=== PATIENT | male | born 1975 | race Hispanic/Latino ===

== ENCOUNTER 2018-01-19 00:33 | Emergency (ER) | payer BC ==
[2018-01-19] MEDS ORDERED: ONDANSETRON 4 MG (ODT) TAB ONE (01:30)
--- NOTE | 2018-01-19 01:54 | ER ---
Nurse's Notes [facility] Name: Jason Lynn Age: 42 yrs Sex: Male : 1975 Arrival Date: 01/19/2018 Time: 00:39 Bed 8 Private MD: Diagnosis: Nondisplaced fracture of distal phalanx of left great toe Presentation: 01/19 00:54 Presenting complaint: Patient states: he was in the garage a couple of days ago and bb some iron bed railing fell on his left big toe which is now painful and swollen. Transition of care: patient was not received from another setting of care. Onset of symptoms was January 19, 2018. Risk Assessment: Do you want to hurt yourself or someone else? Patient reports no desire to harm self or others. Initial Sepsis Screen: Does the patient meet any 2 criteria? No. Patient's initial sepsis screen is negative. Does the patient have a suspected source of infection? No. Patient's initial sepsis screen is negative. Care prior to arrival: None. 00:54 Method Of Arrival: Ambulatory bb 00:54 Acuity: AMY 3 bb Historical: - Allergies: 00:55 No Known Allergies; bb - Home Meds: 00:55 None [Active]; bb - PMHx: 00:55 None; bb - PSHx: 00:55 back injections; bb - Immunization history:: Adult Immunizations up to date. - Social history:: Smoking status: Patient uses tobacco products, smokes one-half pack cigarettes per day, Patient uses alcohol, occasionally. Patient/guardian denies using street drugs. - Ebola Screening: : No symptoms or risks identified at this time. Screenin:56 Abuse screen: Denies threats or abuse. Denies injuries from another. Nutritional bp screening: No deficits noted. Tuberculosis screening: No symptoms or risk factors identified. Fall Risk None identified. Assessment: 00:54 General: Appears in no apparent distress. uncomfortable, slender, Behavior is calm, bp cooperative, appropriate for age. Pain: Complains of pain in left first toe and Left first toenail. Neuro: Level of Consciousness is awake, alert, obeys commands, Oriented to person, place, time, situation, Appropriate for age. Cardiovascular: No deficits noted. Respiratory: Airway is patent Respiratory effort is even, unlabored, Respiratory pattern is regular, symmetrical. GI: No signs and/or symptoms were reported involving the gastrointestinal system. : No signs and/or symptoms were reported regarding the genitourinary system. EENT: No deficits noted. Derm: No deficits noted. Musculoskeletal: Circulation, motion, and sensation intact. Range of motion: intact in all extremities, Bony deformity noted of left first toe and Left first toenail. Injury Description: Deformity sustained to left first toe and Left first toenail. 01:43 Reassessment: Patient appears in no apparent distress at this time. Patient and/or tl2 family updated on plan of care and expected duration. Pain level reassessed. Patient is alert, oriented x 3, equal unlabored respirations, skin warm/dry/pink. 02:05 Reassessment: PT D/C HOME AMBULATORY, DX WITH NONDISPLACED FX OF LEFT GREAT TOE. bp Vital Signs: 00:55 BP 150 / 89; Pulse 99; Resp 18 S; Temp 98.3(O); Pulse Ox 98% on R/A; Weight 83.91 kg bb (R); Height 6 ft. 1 in. (185.42 cm) (R); Pain 2/10; 01:43 BP 158 / 90; Pulse 79; Resp 18; Pulse Ox 99% on R/A; tl2 00:55 Body Mass Index 24.41 (83.91 kg, 185.42 cm) bb ED Course: 00:39 Patient arrived in ED. do 00:43 Uche Thomas PA is PHCP. jr8 00:43 William Skelton MD is Attending Physician. jr8 00:45 Larry Davenport, WINNIE is Primary Nurse. bp 00:55 Triage completed. bb 00:55 Arm band placed on Patient placed in an exam room, on a stretcher, on pulse oximetry. bb 00:56 Patient has correct armband on for positive identification. Bed in low position. Call bp light in reach. Side rails up X2. 01:31 X-ray completed. Portable x-ray completed in exam room. Patient tolerated procedure kw well. 01:32 XRAY Foot LEFT 3 View In Process Unspecified. EDMS 01:52 Abraham Alvarado MD is Referral Physician. jr8 01:53 Maurilio Nettles DPM is Referral Physician. jr8 01:53 Referral Physician role handed off by Abraham Alvarado MD jr8 02:05 No provider procedures requiring assistance completed. Patient did not have IV access bp during this emergency room visit. Administered Medications: 01:27 Drug: Zofran 4 mg Route: PO; bp Outcome: 01:53 Discharge ordered by jr8 02:05 Discharged to home ambulatory, with family. bp 02:05 Condition: stable 02:05 Discharge instructions given to patient, Instructed on discharge instructions, follow up and referral plans. medication usage, wound care, Demonstrated understanding of instructions, follow-up care, medications, wound care, Prescriptions given X 2. 02:06 Patient left the ED. bp Signatures: Dispatcher [employer] EDMS Denisha Thompson RN RN bb Jennifer Marin Josh, PA PA jr8 Eva Bland Taylor, RN RN tl2 Larry Davenport RN RN bp
--- NOTE | 2018-01-19 01:54 | EDPHYS ---
Physician Documentation [facility] Name: Jason Lynn Age: 42 yrs Sex: Male : 1975 Arrival Date: 01/19/2018 Time: 00:39 Bed 8 Private MD: ED Physician William Skelton HPI: 01/19 01:18 This 42 yrs old Male presents to ER via Ambulatory with complaints of Foot jr8 Injury. 01:18 The patient presents with decreased range of motion, pain, swelling, tenderness. The jr8 complaints affect the left first toe. Onset: The symptoms/episode began/occurred acutely. Modifying factors: The symptoms are alleviated by nothing. the symptoms are aggravated by movement, weight bearing. Associated signs and symptoms: The patient has no apparent associated signs or symptoms. Severity of symptoms: At their worst the symptoms were moderate, in the emergency department the symptoms are unchanged. The patient has not experienced similar symptoms in the past. The patient has not recently seen a physician. Stated that large metal bed railing landed on left first toe. Pain since incident that is not getting any better . Historical: - Allergies: 00:55 No Known Allergies; bb - Home Meds: 00:55 None [Active]; bb - PMHx: 00:55 None; bb - PSHx: 00:55 back injections; bb - Immunization history:: Adult Immunizations up to date. - Social history:: Smoking status: Patient uses tobacco products, smokes one-half pack cigarettes per day, Patient uses alcohol, occasionally. Patient/guardian denies using street drugs. - Ebola Screening: : No symptoms or risks identified at this time. ROS: 01:18 Eyes: Negative for injury, pain, redness, and discharge, ENT: Negative for injury, jr8 pain, and discharge, Neck: Negative for injury, pain, and swelling, Cardiovascular: Negative for chest pain, palpitations, and edema, Respiratory: Negative for shortness of breath, cough, wheezing, and pleuritic chest pain, Abdomen/GI: Negative for abdominal pain, nausea, vomiting, diarrhea, and constipation, Back: Negative for injury and pain, Skin: Negative for injury, rash, and discoloration, Neuro: Negative for headache, weakness, numbness, tingling, and seizure. 01:18 MS/extremity: Positive for decreased range of motion, ecchymosis, pain, swelling, tenderness, of the left first toe. Exam: 01:18 Constitutional: This is a well developed, well nourished patient who is awake, alert, jr8 and in no acute distress. Cardiovascular: Regular rate and rhythm with a normal S1 and S2. No gallops, murmurs, or rubs. Normal PMI, no JVD. No pulse deficits. Respiratory: Lungs have equal breath sounds bilaterally, clear to auscultation and percussion. No rales, rhonchi or wheezes noted. No increased work of breathing, no retractions or nasal flaring. Skin: Warm, dry with normal turgor. Normal color with no rashes, no lesions, and no evidence of cellulitis. Neuro: Awake and alert, GCS 15, oriented to person, place, time, and situation. Cranial nerves II-XII grossly intact. Motor strength 5/5 in all extremities. Sensory grossly intact. Cerebellar exam normal. Normal gait. 01:18 Musculoskeletal/extremity: ROM: intact in all extremities, Circulation is intact in all extremities. Sensation intact. Patient has ecchymotic swollen first toe from tip of toe down through toe nail. Nail still intact. Mild subungual hematoma noted . Vital Signs: 00:55 BP 150 / 89; Pulse 99; Resp 18 S; Temp 98.3(O); Pulse Ox 98% on R/A; Weight 83.91 kg bb (R); Height 6 ft. 1 in. (185.42 cm) (R); Pain 2/10; 01:43 BP 158 / 90; Pulse 79; Resp 18; Pulse Ox 99% on R/A; tl2 00:55 Body Mass Index 24.41 (83.91 kg, 185.42 cm) bb MDM: 00:43 Patient medically screened. jr8 01:52 Data reviewed: vital signs, nurses notes, radiologic studies, plain films, and as a jr8 result, I will discharge patient. Data interpreted: Pulse oximetry: on room air is 99 %. Interpretation: normal. Counseling: I had a detailed discussion with the patient and/or guardian regarding: the historical points, exam findings, and any diagnostic results supporting the discharge/admit diagnosis, radiology results, the need for outpatient follow up, a orthopedic surgeon, to return to the emergency department if symptoms worsen or persist or if there are any questions or concerns that arise at home. 01/19 00:51 Order name: XRAY Foot LEFT 3 View bp Administered Medications: 01:27 Drug: Zofran 4 mg Route: PO; bp Disposition: 20:33 Co-signature as Attending Physician, William Skelton MD I agree with the assessment and wa plan of care. Disposition: 01/19/18 01:53 Discharged to Home. Impression: Nondisplaced fracture of distal phalanx of left great toe. - Condition is Stable. - Discharge Instructions: Toe Fracture. - Prescriptions for Ibuprofen 800 mg Oral Tablet - take 1 tablet by ORAL route every 12 hours As needed take with food; 20 tablet. Bactrim DS 800- 160 mg Oral Tablet - take 1 tablet by ORAL route every 12 hours for 10 days; 20 tablet. - Medication Reconciliation Form, Thank You Letter, Antibiotic Education, Prescription Opioid Use form. - Follow up: Abraham Alvarado MD; When: 1 week; Reason: Recheck today's complaints, Continuance of care, Re-evaluation by your physician. Follow up: Maurilio Nettles DPM; When: 1 week; Reason: Recheck today's complaints, Continuance of care, Re-evaluation by your physician. - Problem is new. - Symptoms have improved. Signatures: Dispatcher [employer] EDMS Denisha Thompson RN RN Uche Pollard PA PA jr8 William Skelton MD MD wa Peltier, Brian, RN RN bp Corrections: (The following items were deleted from the chart) 02:06 01:53 01/19/2018 01:53 Discharged to Home. Impression: Nondisplaced fracture of distal bp phalanx of left great toe. Condition is Stable. Forms are Medication Reconciliation Form, Thank You Letter, Antibiotic Education, Prescription Opioid Use. Follow up: Maurilio Nettles; When: 1 week; Reason: Recheck today's complaints, Continuance of care, Re-evaluation by your physician. Problem is new. Symptoms have improved. jr8
--- NOTE | 2018-01-19 08:54 | RAD REPORT ---
EXAM DESCRIPTION: RAD - Foot Left 3 View - 01/19/2018 1:31 am CLINICAL HISTORY: DEFORMITY Pain COMPARISON: No comparisons FINDINGS: Comminuted fracture is noted involving the distal aspect of the distal phalanx of the grea t toe. This is compatible with a tuft fracture. Adjacent soft tissue swelling is present.
== END 2018-01-19 02:06 | disposition home or self-care (01) ==
LOC: ER 00:33
DX: S92.425A Nondisplaced fracture of distal phalanx of left great toe, initial encounter for closed fracture (principal); F17.210 Nicotine dependence, cigarettes, uncomplicated; W20.8XXA Other cause of strike by thrown, projected or falling object, initial encounter; Y93.9 Activity, unspecified; Y92.9 Unspecified place or not applicable; Y99.9 Unspecified external cause status
CPT/HCPCS: 99284

== ENCOUNTER 2018-02-02 21:26 | Emergency (ER) | payer BC ==
[2018-02-02] MEDS ORDERED: predniSONE 20 MG TAB ONE (22:24)
[2018-02-02] MEDS ORDERED: CETIRIZINE HCL 5 MG TABLET ONE (22:24)
[2018-02-02] MEDS ORDERED: FAMOTIDINE 20 MG TAB ONE (22:24)
--- NOTE | 2018-02-02 22:24 | EDPHYS ---
Physician Documentation [facility] Name: Jason Lynn Age: 42 yrs Sex: Male : 1975 Arrival Date: 02/02/2018 Time: 21:26 Bed 5 Private MD: ED Physician Manjinder Willams HPI: 02/02 22:35 This 42 yrs old Male presents to ER via Ambulatory with complaints of Rash. snw 22:35 The patient's rash thought to be caused by Dermatitis. The rash is located on the left snw bicep and left tricep. The rash can be described as erythematous, raised. Onset: The symptoms/episode began/occurred suddenly. Associated signs and symptoms: Pertinent positives: burning sensation. Severity of symptoms: At their worst the symptoms were mild moderate. The patient has not experienced similar symptoms in the past. It is unknown whether or not the patient has recently seen a physician. Historical: - Allergies: 21:35 No Known Allergies; aj1 - Home Meds: 21:35 None [Active]; aj1 - PMHx: 21:35 None; aj1 - PSHx: 21:35 back surgery; aj1 - Immunization history:: Flu vaccine is up to date. - Social history:: Smoking status: Patient uses tobacco products, smokes one-half pack cigarettes per day. - Ebola Screening: : Patient denies travel to an Ebola-affected area in the 21 days before illness onset. ROS: 22:35 Constitutional: Negative for fever, chills, and weight loss, Eyes: Negative for injury, snw pain, redness, and discharge, ENT: Negative for injury, pain, and discharge, Neck: Negative for injury, pain, and swelling, Cardiovascular: Negative for chest pain, palpitations, and edema, Respiratory: Negative for shortness of breath, cough, wheezing, and pleuritic chest pain, Abdomen/GI: Negative for abdominal pain, nausea, vomiting, diarrhea, and constipation, Back: Negative for injury and pain, : Negative for injury, bleeding, discharge, and swelling, MS/Extremity: Negative for injury and deformity, Neuro: Negative for headache, weakness, numbness, tingling, and seizure, Psych: Negative for depression, anxiety, suicide ideation, homicidal ideation, and hallucinations. 22:35 Skin: Positive for rash. Exam: 22:34 Constitutional: This is a well developed, well nourished patient who is awake, alert, snw and in no acute distress. Head/Face: Normocephalic, atraumatic. Eyes: Pupils equal round and reactive to light, extra-ocular motions intact. Lids and lashes normal. Conjunctiva and sclera are non-icteric and not injected. Cornea within normal limits. Periorbital areas with no swelling, redness, or edema. ENT: Nares patent. No nasal discharge, no septal abnormalities noted. Tympanic membranes are normal and external auditory canals are clear. Oropharynx with no redness, swelling, or masses, exudates, or evidence of obstruction, uvula midline. Mucous membranes moist. Neck: Trachea midline, no thyromegaly or masses palpated, and no cervical lymphadenopathy. Supple, full range of motion without nuchal rigidity, or vertebral point tenderness. No Meningismus. Chest/axilla: Normal chest wall appearance and motion. Nontender with no deformity. No lesions are appreciated. Cardiovascular: Regular rate and rhythm with a normal S1 and S2. No gallops, murmurs, or rubs. Normal PMI, no JVD. No pulse deficits. Respiratory: Lungs have equal breath sounds bilaterally, clear to auscultation and percussion. No rales, rhonchi or wheezes noted. No increased work of breathing, no retractions or nasal flaring. Abdomen/GI: Soft, non-tender, with normal bowel sounds. No distension or tympany. No guarding or rebound. No evidence of tenderness throughout. Back: No spinal tenderness. No costovertebral tenderness. Full range of motion. MS/ Extremity: Pulses equal, no cyanosis. Neurovascular intact. Full, normal range of motion. Neuro: Awake and alert, GCS 15, oriented to person, place, time, and situation. Cranial nerves II-XII grossly intact. Motor strength 5/5 in all extremities. Sensory grossly intact. Cerebellar exam normal. Normal gait. Psych: Awake, alert, with orientation to person, place and time. Behavior, mood, and affect are within normal limits. 22:34 Skin: Appearance: normal except for affected area, contact dermatitis, on the left arm. Vital Signs: 21:35 BP 164 / 91; Pulse 71; Resp 18; Temp 98.6(TE); Pulse Ox 98% on R/A; Weight 88.45 kg aj1 (R); Height 6 ft. 1 in. (185.42 cm) (R); Pain 310; 21:35 Body Mass Index 25.73 (88.45 kg, 185.42 cm) aj1 MDM: 21:55 Patient medically screened. snw 22:35 Data reviewed: vital signs, nurses notes. Data interpreted: Pulse oximetry: on room air snw is 98 %. Interpretation: normal. Counseling: I had a detailed discussion with the patient and/or guardian regarding: the historical points, exam findings, and any diagnostic results supporting the discharge/admit diagnosis, the presence of at least one elevated blood pressure reading (>120/80) during this emergency department visit, the need for outpatient follow up, to return to the emergency department if symptoms worsen or persist or if there are any questions or concerns that arise at home. Special discussion: I have referred the patient to see his PCP for further evaluation of high blood pressure. Based on the history and exam findings, there is no indication for further emergent testing or inpatient evaluation. I discussed with the patient/guardian the need to see the primary care provider for further evaluation of the symptoms. Administered Medications: 22:22 Drug: ZyrTEC - Cetirizine 10 mg Route: PO; jd3 22:36 Follow up: Response: Medication administered at discharge. jd3 22:22 Drug: Pepcid 20 mg Route: PO; jd3 22:36 Follow up: Response: Medication administered at discharge. jd3 22:23 Drug: predniSONE 20 mg Route: PO; jd3 22:36 Follow up: Response: Medication administered at discharge. jd3 Disposition: 22:42 Co-signature as Attending Physician, Manjinder Willams MD. pkl Disposition: 02/02/18 22:23 Discharged to Home. Impression: Irritant contact dermatitis. - Condition is Stable. - Discharge Instructions: Contact Dermatitis. - Prescriptions for Pepcid 20 mg Oral Tablet - take 1 tablet by ORAL route every 12 hours for 10 days; 20 tablet. Zyrtec 10 mg Oral Tablet - take 1 tablet by ORAL route once daily As needed; 20 tablet. Prednisone 20 mg Oral Tablet - take 2 tablet by ORAL route once daily for 5 days; 10 tablet. - Medication Reconciliation Form, Thank You Letter, Antibiotic Education, Prescription Opioid Use form. - Follow up: Private Physician; When: 2 - 3 days; Reason: Recheck today's complaints, Continuance of care, Re-evaluation by your physician. Follow up: Emergency Department; When: As needed; Reason: Worsening of condition. Signatures: Cynthia La, RN RN aj1 Manjinder Willams MD MD pkl Leah Berry, XEROX MACHINE ASSEMBLER-C XEROX MACHINE ASSEMBLER-Csnw Royal Mcdonough, RN RN jd3 Corrections: (The following items were deleted from the chart) 22:37 22:23 02/02/2018 22:23 Discharged to Home. Impression: Irritant contact dermatitis. jd3 Condition is Stable. Forms are Medication Reconciliation Form, Thank You Letter, Antibiotic Education, Prescription Opioid Use. Follow up: Private Physician; When: 2 - 3 days; Reason: Recheck today's complaints, Continuance of care, Re-evaluation by your physician. Follow up: Emergency Department; When: As needed; Reason: Worsening of condition. snw
--- NOTE | 2018-02-02 22:24 | ER ---
Nurse's Notes [facility] Name: Jason Lynn Age: 42 yrs Sex: Male : 1975 Arrival Date: 02/02/2018 Time: 21:26 Bed 5 Private MD: Diagnosis: Irritant contact dermatitis Presentation: 02/02 21:31 Presenting complaint: Patient states: He woke up with a red, raised rash on his left aj1 upper arm. Reports the rash is causing burning pain. Denies fever. Transition of care: patient was not received from another setting of care. Onset of symptoms was February 02, 2018. Risk Assessment: Do you want to hurt yourself or someone else? Patient reports no desire to harm self or others. Initial Sepsis Screen: Does the patient meet any 2 criteria? No. Patient's initial sepsis screen is negative. Does the patient have a suspected source of infection? No. Patient's initial sepsis screen is negative. Care prior to arrival: None. 21:31 Method Of Arrival: Ambulatory aj 21:31 Acuity: AMY 4 aj1 Triage Assessment: 21:35 General: Appears in no apparent distress. comfortable, Behavior is calm, cooperative, aj1 appropriate for age. Pain: Complains of pain in left tricep Pain currently is 3 out of 10 on a pain scale. Quality of pain is described as burning. Neuro: Level of Consciousness is awake, alert, obeys commands. Cardiovascular: Patient's skin is warm and dry. Respiratory: Airway is patent Respiratory effort is even, unlabored, Respiratory pattern is regular, symmetrical. Derm: Rash noted that is red, raised, on left tricep. Historical: - Allergies: 21:35 No Known Allergies; aj1 - Home Meds: 21:35 None [Active]; aj1 - PMHx: 21:35 None; aj1 - PSHx: 21:35 back surgery; aj1 - Immunization history:: Flu vaccine is up to date. - Social history:: Smoking status: Patient uses tobacco products, smokes one-half pack cigarettes per day. - Ebola Screening: : Patient denies travel to an Ebola-affected area in the 21 days before illness onset. Screenin:56 Abuse screen: Denies threats or abuse. Nutritional screening: No deficits noted. jd3 Tuberculosis screening: No symptoms or risk factors identified. Fall Risk Ambulatory Aid- None/Bed Rest/Nurse Assist (0 pts). Gait- Normal/Bed Rest/Wheelchair (0 pts) Mental Status- Oriented to own ability (0 pts). Total Ramírez Fall Scale indicates No Risk (0-24 pts). Assessment: 21:54 General: Appears in no apparent distress. uncomfortable, Behavior is calm, cooperative, jd3 appropriate for age. Pain: Complains of pain in left tricep Pain does not radiate. Quality of pain is described as burning, aching, stinging. Neuro: Level of Consciousness is awake, alert, obeys commands, Oriented to person, place, time, situation, Appropriate for age. Cardiovascular: Heart tones S1 S2 present Capillary refill < 3 seconds. Respiratory: Airway is patent Respiratory effort is even, unlabored, Respiratory pattern is regular, symmetrical, Denies cough, shortness of breath. GI: No signs and/or symptoms were reported involving the gastrointestinal system. : No signs and/or symptoms were reported regarding the genitourinary system. EENT: No signs and/or symptoms were reported regarding the EENT system. Derm: Skin is intact, Skin is dry, Skin is normal, Skin temperature is warm Rash noted that is itchy, red, raised, on left tricep. Musculoskeletal: Circulation, motion, and sensation intact. Range of motion: intact in all extremities. Vital Signs: 21:35 BP 164 / 91; Pulse 71; Resp 18; Temp 98.6(TE); Pulse Ox 98% on R/A; Weight 88.45 kg aj1 (R); Height 6 ft. 1 in. (185.42 cm) (R); Pain 3/10; 21:35 Body Mass Index 25.73 (88.45 kg, 185.42 cm) aj1 ED Course: 21:26 Patient arrived in ED. ds1 21:29 [facility] snw 21:29 Manjinder Willams MD is Attending Physician. snw 21:34 Triage completed. aj1 21:35 Arm band placed on Patient placed in waiting room, Patient notified of wait time. aj1 21:51 Royal Mcdonough RN is Primary Nurse. jd3 21:57 Patient has correct armband on for positive identification. Bed in low position. Call jd3 light in reach. Side rails up X 1. Adult w/ patient. 22:34 No provider procedures requiring assistance completed. Patient did not have IV access jd3 during this emergency room visit. Administered Medications: 22:22 Drug: ZyrTEC - Cetirizine 10 mg Route: PO; jd3 22:36 Follow up: Response: Medication administered at discharge. jd3 22:22 Drug: Pepcid 20 mg Route: PO; jd3 22:36 Follow up: Response: Medication administered at discharge. jd3 22:23 Drug: predniSONE 20 mg Route: PO; jd3 22:36 Follow up: Response: Medication administered at discharge. jd3 Outcome: 22:23 Discharge ordered by . snw 22:34 Discharged to home ambulatory, with family. jd3 22:34 Condition: stable 22:34 Discharge instructions given to patient, family, Instructed on discharge instructions, follow up and referral plans. medication usage, Demonstrated understanding of instructions, follow-up care, medications, Prescriptions given X 3. 22:37 Patient left the ED. jd3 Signatures: Cynthia La RN RN aj1 Leah Berry, JOURNEYMAN WELDER-C JOURNEYMAN WELDER-Bethany Tucker ds1 Royal Mcdonough RN RN jd3
== END 2018-02-02 22:37 | disposition home or self-care (01) ==
LOC: ER 21:26
DX: L24.9 Irritant contact dermatitis, unspecified cause (principal); Z72.0 Tobacco use
CPT/HCPCS: 99283; J7512

== ENCOUNTER 2021-03-27 13:37 | Emergency (ER) | payer BC, OTHER ==
--- NOTE | 2021-03-27 15:23 | RAD REPORT ---
EXAM DESCRIPTION: RAD - Chest Pa And Lat (2 Views) - 03/27/2021 3:14 pm CLINICAL HISTORY: COUGH Chest pain. COMPARISON: No comparisons FINDINGS: The lungs are clear. The heart is normal in size. No displaced fractures. IMPRESSION: No acute or concerning finding suspected.
--- NOTE | 2021-03-27 17:16 | ER ---
Nurse's Notes [facility] Name: Jason Lynn Age: 45 yrs Sex: Male : 1975 Arrival Date: 03/27/2021 Time: 13:44 Bed 11 Private MD: Diagnosis: Cutaneous abscess of face;Acute upper respiratory infection, unspecified;Acute bronchitis due to other specified organism;Tobacco abuse counseling;Tobacco use Presentation: 03/27 14:29 Chief complaint: Patient states: Cough, body aches and headache x 2 days, son diagnosed jl7 with bronchitis on Thursday night, denies fever, denies shortness of breath. Coronavirus screen: Vaccine status: Patient reports being unvaccinated. cough unrelated to allergies, headache, muscle pain, Client presents with at least one sign or symptom that may indicate coronavirus-19. Standard/surgical mask placed on the client. Provider contacted for isolation considerations. Ebola Screen: No symptoms or risks identified at this time. Initial Sepsis Screen: Does the patient meet any 2 criteria? No. Patient's initial sepsis screen is negative. Does the patient have a suspected source of infection? No. Patient's initial sepsis screen is negative. Risk Assessment: Do you want to hurt yourself or someone else? Patient reports no desire to harm self or others. Onset of symptoms was March 25, 2021. Care prior to arrival: None. 14:29 Method Of Arrival: Ambulatory [facility] 14:29 Acuity: AMY 4 jl7 Triage Assessment: 14:31 General: Appears in no apparent distress. uncomfortable, Behavior is calm, cooperative, jl7 appropriate for age. Pain: Complains of pain in headache Pain currently is 4 out of 10 on a pain scale. Neuro: Level of Consciousness is awake, alert, obeys commands, Oriented to person, place, time, situation. Cardiovascular: Patient's skin is warm and dry. Respiratory: Airway is patent Respiratory effort is even, unlabored, Respiratory pattern is regular, symmetrical. Derm: Skin is pink, warm \T\ dry. Historical: - Allergies: 14:31 No Known Allergies; jl7 - Home Meds: 14:31 None [Active]; jl7 - PMHx: 14:31 None; jl7 - PSHx: 14:31 None; jl7 - Immunization history:: Adult Immunizations up to date, Client reports having NOT received the Covid vaccine. - Social history:: Smoking status: Patient reports the use of cigarette tobacco products, smokes one-half pack cigarettes per day. Screenin:30 Abuse screen: Denies threats or abuse. Denies injuries from another. Nutritional jl7 screening: No deficits noted. Tuberculosis screening: No symptoms or risk factors identified. Fall Risk None identified. Assessment: 14:30 General: See triage. 7 Vital Signs: 14:29 BP 136 / 81; Pulse 74; Resp 17; Temp 98.6; Pulse Ox 99% ; Weight 79.38 kg (R); Height 6 7 ft. 1 in. (185.42 cm); Pain 4/10; 14:29 Body Mass Index 23.09 (79.38 kg, 185.42 cm) 7 ED Course: 13:44 Patient arrived in ED. as 14:30 Patient has correct armband on for positive identification. [facility] 14:31 Triage completed. [facility] 14:31 Arm band placed on right wrist. Patient placed in waiting room, Patient notified of 7 wait time. 14:44 COVID swab sent to lab. Flu and/or RSV swab sent to lab. 7 15:14 XRAY Chest Pa And Lat (2 Views) In Process Unspecified. EDMA 16:00 Piotr Saenz RN is Primary Nurse. [facility] 16:20 Scottie Escalante MD is Attending Physician. [facility] 17:01 Primary Nurse role handed off by Piotr Saenz RN tc 17:01 Aminta Wood, WINNIE is Primary Nurse. tc5 Administered Medications: 17:25 Drug: Bactrim (trimethoprim-sulfamethoxazole) (160 mg-800 mg (DS) 1 tablet Route: PO; tc5 17:35 Follow up: Response: No adverse reaction tc5 17:25 Drug: Doxycycline 200 mg Route: PO; tc5 17:35 Follow up: Response: No adverse reaction tc5 17:25 Drug: Bactroban (mupirocin) Ointment 2 % 1 application Route: Topical; Site: affected tc5 area; 17:35 Follow up: Response: No adverse reaction tc5 Outcome: 17:16 Discharge ordered by . [facility] 17:36 Patient left the ED. tc5 Signatures: Dispatcher [employer] EDMA BorisScottie MD MD cha Martinez, Amelia as Leal, Jahala, RN RN jl7 Aminta Wood, RN RN tc5
--- NOTE | 2021-03-27 17:17 | EDPHYS ---
Physician Documentation [facility] Name: Jason Lynn Age: 45 yrs Sex: Male : 1975 Arrival Date: 03/27/2021 Time: 13:44 Bed 11 Private MD: ED Physician Scottie Escalante HPI: 03/27 17:09 This 45 yrs old Male presents to ER via Ambulatory with complaints of Cough. carlos enrique 17:09 The patient or guardian reports cough, that is intermittent, difficulty breathing, flu carlos enrique symptoms, myalgias. Onset: The symptoms/episode began/occurred 2 day(s) ago. Severity of symptoms: At their worst the symptoms were mild, in the emergency department the symptoms are unchanged. Modifying factors: The symptoms are alleviated by nothing, the symptoms are aggravated by nothing. Associated signs and symptoms: The patient has no apparent associated signs or symptoms. The patient has experienced similar episodes in the past, a few times. Historical: - Allergies: 14:31 No Known Allergies; jl7 - Home Meds: 14:31 None [Active]; jl7 - PMHx: 14:31 None; jl7 - PSHx: 14:31 None; jl7 - Immunization history:: Adult Immunizations up to date, Client reports having NOT received the Covid vaccine. - Social history:: Smoking status: Patient reports the use of cigarette tobacco products, smokes one-half pack cigarettes per day. ROS: 17:10 Constitutional: Negative for fever, chills, and weight loss, Eyes: Negative for injury, carlos enrique pain, redness, and discharge, ENT: Negative for injury, pain, and discharge, Neck: Negative for injury, pain, and swelling, Cardiovascular: Negative for chest pain, palpitations, and edema, Abdomen/GI: Negative for abdominal pain, nausea, vomiting, diarrhea, and constipation, Back: Negative for injury and pain, : Negative for injury, bleeding, discharge, and swelling, MS/Extremity: Negative for injury and deformity, Neuro: Negative for headache, weakness, numbness, tingling, and seizure, Psych: Negative for depression, anxiety, suicide ideation, homicidal ideation, and hallucinations, Allergy/Immunology: Negative for hives, rash, and allergies, Endocrine: Negative for neck swelling, polydipsia, polyuria, polyphagia, and marked weight changes, Hematologic/Lymphatic: Negative for swollen nodes, abnormal bleeding, and unusual bruising. 17:10 Skin: Positive for abscess, cellulitis, erythema, of the chin. Exam: 17:10 Constitutional: This is a well developed, well nourished patient who is awake, alert, carlos enrique and in no acute distress. Eyes: Pupils equal round and reactive to light, extra-ocular motions intact. Lids and lashes normal. Conjunctiva and sclera are non-icteric and not injected. Cornea within normal limits. Periorbital areas with no swelling, redness, or edema. ENT: Nares patent. No nasal discharge, no septal abnormalities noted. Tympanic membranes are normal and external auditory canals are clear. Oropharynx with no redness, swelling, or masses, exudates, or evidence of obstruction, uvula midline. Mucous membranes moist. Neck: Trachea midline, no thyromegaly or masses palpated, and no cervical lymphadenopathy. Supple, full range of motion without nuchal rigidity, or vertebral point tenderness. No Meningismus. Chest/axilla: Normal chest wall appearance and motion. Nontender with no deformity. No lesions are appreciated. Cardiovascular: Regular rate and rhythm with a normal S1 and S2. No gallops, murmurs, or rubs. Normal PMI, no JVD. No pulse deficits. Abdomen/GI: Soft, non-tender, with normal bowel sounds. No distension or tympany. No guarding or rebound. No evidence of tenderness throughout. Back: No spinal tenderness. No costovertebral tenderness. Full range of motion. Male : Normal genitalia with no discharge or lesions. Skin: Warm, dry with normal turgor. Normal color with no rashes, no lesions, and no evidence of cellulitis. MS/ Extremity: Pulses equal, no cyanosis. Neurovascular intact. Full, normal range of motion. Neuro: Awake and alert, GCS 15, oriented to person, place, time, and situation. Cranial nerves II-XII grossly intact. Motor strength 5/5 in all extremities. Sensory grossly intact. Cerebellar exam normal. Normal gait. Psych: Awake, alert, with orientation to person, place and time. Behavior, mood, and affect are within normal limits. 17:10 Head/face: Noted is erythema, swelling, tenderness, that is mild, of the chin. 17:10 Respiratory: the patient does not display signs of respiratory distress, Respirations: no acute changes, is not noted, Breath sounds: bronchial sounds, that are mild, are scattered, rhonchi, that are mild, are scattered, stridor, is not appreciated, wheezing: expiratory Respiratory rate: 74 Vital Signs: 14:29 BP 136 / 81; Pulse 74; Resp 17; Temp 98.6; Pulse Ox 99% ; Weight 79.38 kg (R); Height 6 [facility] ft. 1 in. (185.42 cm); Pain 4/10; 14:29 Body Mass Index 23.09 (79.38 kg, 185.42 cm) [facility] MDM: 16:20 Patient medically screened. [facility] 03/27 14:40 Order name: Flu; Complete Time: 16:54 [facility] 03/27 14:40 Order name: XRAY Chest Pa And Lat (2 Views); Complete Time: 16:54 [facility] 03/27 16:02 Order name: SARS-COV-2 RT PCR; Complete Time: 17:08 EDMS Administered Medications: 17:25 Drug: Bactrim (trimethoprim-sulfamethoxazole) (160 mg-800 mg (DS) 1 tablet Route: PO; tc5 17:35 Follow up: Response: No adverse reaction tc5 17:25 Drug: Doxycycline 200 mg Route: PO; tc5 17:35 Follow up: Response: No adverse reaction tc5 17:25 Drug: Bactroban (mupirocin) Ointment 2 % 1 application Route: Topical; Site: affected tc5 area; 17:35 Follow up: Response: No adverse reaction tc5 Disposition Summary: 03/27/21 17:16 Discharge Ordered Location: Home carlos enrique Problem: new carlos enrique Symptoms: have improved carlos enrique Condition: Stable carlos enrique Diagnosis - Cutaneous abscess of face carlos enrique - Acute upper respiratory infection, unspecified carlos enrique - Acute bronchitis due to other specified organism carlos enrique - Tobacco abuse counseling carlos enrique - Tobacco use carlos enrique Followup: carlos enrique - With: Private Physician - When: 2 - 3 days - Reason: Recheck today's complaints, Continuance of care, Re-evaluation by your physician Discharge Instructions: - Discharge Summary Sheet carlos enrique - Skin Abscess carlos enrique - Acute Bronchitis, Adult carlos enrique - Steps to Quit Smoking carlos enrique - Health Risks of Smoking carlos enrique - Upper Respiratory Infection, Adult carlos enrique - Cool Mist Vaporizer carlos enrique - Skin Abscess, [id number] carlos enrique - Upper Respiratory Infection, Adult, [id number] carlos enrique - Steps to Quit Smoking, [id number] carlos enrique - Cough, Adult [facility] Forms: - Medication Reconciliation Form [facility] - Thank You Letter carlos enrique - Antibiotic Education [facility] - Prescription Opioid Use [facility] Prescriptions: - albuterol sulfate 90 mcg/actuation Inhalation HFA aerosol inhaler - inhale 2 puff by INHALATION route every 4-6 hours; 1 Pump; Refills: 0, Product carlos enrique Selection Permitted - Doxycycline Hyclate 100 mg Oral Tablet - take 1 tablet by ORAL route every 12 hours; 20 tablet; Refills: 0, Product carlos enrique Selection Permitted - Centany 2 % Topical ointment - apply 1 application by TOPICAL route 3 times per day; 30 gram; Refills: 0, [facility] Product Selection Permitted - Bactrim DS 800-160 mg Oral Tablet - take 1 tablet by ORAL route every 12 hours for 10 days; 20 tablet; Refills: 0, [facility] Product Selection Permitted Signatures: Dispatcher [employer] EDScottie Bonds MD MD cha Leal, Jahala RN RN jl7 Aminta Wood RN RN tc5 Corrections: (The following items were deleted from the chart) 16:02 14:41 CORONAVIRUS+MR.LAB.BRZ ordered. EDMS EDMS
[2021-03-27 17:40] VITALS: BP 136/81; TEMP 98.6; O2SAT 99
[2021-03-27] MEDS ORDERED: SMZ./TMP. 800/160 MG TABLET ONE (17:48)
[2021-03-27] MEDS ORDERED: MUPIROCIN 2% OINT 22GM TUBE TOP ONE (17:49)
[2021-03-27] MEDS ORDERED: DOXYCYCLINE 100 MG CAP PO ONE (17:49)
== END 2021-03-27 17:36 | disposition home or self-care (01) ==
LOC: ER 13:37
DX: J20.8 Acute bronchitis due to other specified organisms (principal); L02.01 Cutaneous abscess of face; Z72.0 Tobacco use; Z71.6 Tobacco abuse counseling; Z20.822 Contact with and (suspected) exposure to COVID-19
CPT/HCPCS: 87804 ×2; 71046; 99283; U0003

== ENCOUNTER 2021-10-10 17:15 | Emergency (ER) | payer OTHER ==
--- OUTSIDE RECORDS SUMMARY | 2021-10-10 17:22 | XMS REPORT | Continuity of Care Document ---
:1975 Author Organization [facility] t Address [address] [place] [address] Care Team Providers Name Role Phone Joaqiun Hamilton Attending Clinician Unavailable Physician, Primary or Family Admitting Clinician Unavailabl e Payers Payer Name Policy Type Policy Number Effective Date Expiration Date S ource Problems This patient has no known problems. Allergies, Adverse Reactions, Alerts Allergy Allergy Status Severity Reaction(s) Onset Inactive Treating Comm ents Source Name Type Date Date Clinician No Known DA Active U 2018-06 [facility] 00:00: [facility] 00 are [place] No Known DA Active U 2018-06 [facility] 00:00: [facility] 00 are [place] Medications This patient has no known medications. Procedures This patient has no known procedures. Encounters Start End Encounter Admission Attending Care Care Encounter Source Date/Time Date/Time Type Type Clinicians Facility Department ID 2019-06-21 2019-06-21 Emergency EM MAL Hamilton [id number] [facility] 17:54:00 20:01:00 Ubaldo [id number] [facility] are [place] Results Test Description Test Time Test Comments Results Result Comments Source FOLATE, RBC 2021-10-07 15:53:15 Test Item Value Reference Range Interpretation Comme nts HEMATOCRIT (test code = 1004) 43.8 % 40.0-51.0 FOLATE, RBC (test code = 2690) 1032 NG/ML 499-1504 INTERPRETIVE RA NGES DEFICIENCY . . . . . . . . . . . . . . . NG/ML <=150 POSSIBLE DEFICI ENCY. . . . . . . . . . . NG/ML 151-498 SUFFICIENT . . . . . . . . . . . . . . . NG/M L 499-1504 EXCESS . . . . . . . . . . . . . . . . . NG /ML >1504 SEDIMENTATION [id number] 06:45:51 Test Item Value Reference Range Interpretation Comments SEDIMENTATION RATE (test code = 2 MM/HOUR 0-15 1017) CCP [id number] 06:16:42 Test Item Value Reference Range Interpretation Comments CCP IgG (test <0.5 U/ML <3.0 code = 27637) INTERPRETIVE I NFORMATION IN TERPRETATION RE SULT NEGATIVE <3.0 U/ML POSITIVE >=3.0 U/ML ASHLEY AUTOIMMUNE PANEL REFLEX TO [id number] 06:16:42 Test Item Value Reference Range Interpretation Comments ANTI-NUCLEAR NEGATIVE NEGATIVE Methodolo gy is ANTIBODIES (test Indirect code = 3506) Immunofluoresce nt Assay (IFA) with a titering system using p2000 cells (Hep2 dawson ls transfected with SS-A/Ro). SJOGREN'S SS-A <0.2 AI <1.0 ANTIBODY (test code = 03248) SJOGREN'S SS-B <0.2 AI <1.0 ANTIBODY (test code = 06553) HAN (Sm) ANTIBODY <0.2 AI <1.0 (test code = 38969) DEVELOPMENT SCIENTIST ANTIBODY (test <0.2 AI <1.0 code = 91649) SCL-70 ANTIBODY <0.2 AI <1.0 (test code = 4606) Sita-1 ANTIBODY (test <0.2 AI <1.0 code = 4680) CENTROMERE B <0.2 AI <1.0 ANTIBODY (test code = 4630) RIBOSOMAL P <0.2 AI <1.0 ANTIBODY (test code = 54155) CHROMATIN ANTIBODY <0.2 AI <1.0 (test code = 49396) THYROID PEROXIDASE 5 IU/ML <9 AB (test code = 71792) COMPLEMENT C3 (test 102 MG/DL 90-180 code = 7237) COMPLEMENT C4 (test 19 MG/DL 10-40 code = 8978) RHEUMATOID FACTOR, <10 IU/ML <14 QUANT (test code = 2692) dsDNA ANTIBODY <1.0 SEE BELOW NEG ATIVE . . . (test code = 04904) . . . . . . . . . . . IU/ML <=4.9 INDETERMINA TE. . . . . . . . . . . . IU/ML 5.0-9.0 POSITIVE . . . . . . . . . . . . . . IU/ ML >=10.0 dsDNA ANTIBODY (NOTE) NEGATIVE NOTE : REFLEX REFLEX (test code = CRITERIA NOT MET FOR DNA 19257) DOUBLE STRANDED ANTIBO DY BY XANDER METHOD. UNLESS OTHERWISE INDIC ATED, ALL TESTING PERFORM ED [facility], [facility]. [address] [place], [place] [id number] [place] [address] DIRECTOR: RUBIO GONZALES M.D. [place] NUMBER [id number] CAP ACCREDITATION N O. [id number] TSH, THIRD [id number] 05:45:21 Test Item Value Reference Range Interpretation Comments TSH, THIRD GENERATION (test code 2.150 UIU/ML 0.400-4.100 = 2821) VITAMIN [id number] 05:45:21 Test Item Value Reference Range Interpretation Comments VITAMIN B-12 (test code = 2840) 398 PG/ML 200-950 C-REACTIVE [id number] 04:08:44 Test Item Value Reference Range Interpretation Comments C-REACTIVE PROTEIN (test code = <0.3 MG/DL <0.5 3513) COMPREHENSIVE METABOLIC [id number] 04:06:36 Test Item Value Reference Range Interpretation Comments GLUCOSE (test code = 90 MG/DL 70-99 2216) BUN (test code = 17 MG/DL 12-09) CREATININE (test 1.15 MG/DL 0.80-1.40 code = 2214) eGFR (2020 CKD-EPI) 79 ML/MIN/1.73 >60 (test code = 52716) CALC BUN/CREAT (test 15 RATIO 12-17 code = 2235) SODIUM (test code = 141 MEQ/L 595-355 5841) POTASSIUM (test code 4.2 MEQ/L 3.5-5.4 = 2228) CHLORIDE (test code 103 MEQ/L 95-107 = 2215) CARBON DIOXIDE (test 26 MEQ/L 19-31 code = 2206) CALCIUM (test code = 9.8 MG/DL 8.5-10.5 2208) PROTEIN, TOTAL (test 7.1 G/DL 6.1-8.3 code = 222) ALBUMIN (test code = 4.7 G/DL 3.5-5.2 2200) CALC GLOBULIN (test 2.4 G/DL 1.9-3.7 code = 2240) CALC A/G RATIO (test 2.0 RATIO 1.0-2.6 code = 2234) BILIRUBIN, TOTAL 0.3 MG/DL See_Comment [Automated message] (test code = 220) The syste m which generated this result transmit zenon reference range : <=1.2. The refe rence range was not u sed to interpret th is result as normal/abnormal . ALKALINE PHOSPHATASE 77 U/L 40-118 (test code = 2203) AST (test code = 22 U/L 9-50 2217) ALT (test code = 31 U/L 5-50 2218) LIPID [id number] 04:06:36 Test Item Value Reference Range Interpretation Comments CHOLESTEROL (test 158 MG/DL <200 code = 2210) TRIGLYCERIDES (test 47 MG/DL <150 code = 2232) HDL CHOLESTEROL (test 46 MG/DL >39 code = 2220) CALC LDL CHOL (test 98 MG/DL <100 NOTE: C ALCULATED LDL code = 2237) IS BASED ON SAJAN-GIBBONS METHOD WHICHINCLUDES ADJUSTABLE TRIGLYCERIDE:VL DL CHOLESTEROL RAT IO.THIS FACTOR VARIES B Y MEASURED TRIGLY CERIDE AND NON-HDLCHOL ESTEROL CONCENTRATIONS WITH INCREASED CALCU LATED LDL SEENIN HIGH ER TRIGLYCERIDE OR LOWER NON-HDL SPECIME NS. FOR MOREINFORMATION , SEE CLIENT ANNOUNCE MENT AT [email or web address] LDL/HDL 2.13 RATIO <3.55 (test code = 2238) CBC W/AUTO DIFF WITH [id number] 01:44:25 Test Item Value Reference Range Interpretation Comments WBC (test code = 8.4 K/UL 3.5-11.0 1001) RBC (test code = 5.07 M/UL 4.50-6.10 1002) HEMOGLOBIN (test code 15.5 G/DL 13.5-17.0 = 1003) HEMATOCRIT (test code 43.8 % 40.0-51.0 = 1004) MCV (test code = 86.4 fL 80.0-99.0 1005) MCH (test code = 30.6 PG 25.0-33.0 1006) MCHC (test code = 35.4 G/DL 31.0-36.0 1007) RDW (test code = 13.4 % 11.5-15.0 1038) NEUTROPHILS (test 60.1 % code = 1008) LYMPHOCYTES (test 27.6 % code = 1010) MONOCYTES (test code 8.8 % = 1011) EOSINOPHILS (test 2.6 % code = 1012) BASOPHILS (test code 0.5 % = 1013) IMMATURE GRANULOCYTES 0.4 % (test code = 1036) NUCLEATED RBCS (test 0.0 /100 See_Comment [Autom ated code = 1065) WBC'S message] The sy stem which generated this result transmitted reference range : 0.0. The refere nce range was not u sed to interpret th is result as normal/abnormal . PLATELET COUNT (test 313 K/UL 130-400 code = 1015) ABSOLUTE NEUTROPHILS 5.04 K/UL 1.50-7.50 (test code = 1066) ABSOLUTE LYMPHOCYTES 2.31 K/UL 1.00-4.00 (test code = 1067) ABSOLUTE MONOCYTES 0.74 K/UL 0.20-1.00 (test code = 1068) ABSOLUTE EOSINOPHILS 0.22 K/UL 0.00-0.50 (test code = 1040) ABSOLUTE BASOPHILS 0.04 K/UL 0.00-0.20 (test code = 1069) ABS IMMATURE 0.03 K/UL 0.00-0.10 GRANULOCYTES (test code = 1020) ABS NUCLEATED RBCS 0.00 K/UL 0.00-0.11 (test code = 88053) BASIC METABOLIC [id number] 19:43:00 Test Item Value Reference Range Interpretation Comments SODIUM (test code 141 mmol/L 136-145 N = NA) POTASSIUM (test 3.8 MMOL/L 3.6-5.2 N code = K) CHLORIDE (test 107 MMOL/L 98-110 N code = CL) CARBON DIOXIDE 30 mEq/L 24-32 N (test code = CO2) GLUCOSE (test code 106 mg/dL 70-110 N = GLU) BLOOD UREA 6 mg/dL 7-18 L NITROGEN (test code = BUN) GLOMERULAR >=60 max >60 The estimated FILTRATION RATE estimate glomerular (test code = GFR) filtration rate is computed usingpatient ra ce, age (>18), sex, and serum creatinin e. If anyof the neede d data elements a re missing the Laboratory ismael ot compute an estimation of t he glomerular filtration rate . CREATININE (test 1.09 mg/dL 0.60-1.30 N code = CREAT) CALCIUM (test code 8.7 mg/dL 8.6-10.3 N = CA) [id number] 19:43:00 Test Item Value Reference Range Interpretation Comments TROPONIN-I (test code = TROPI) ng/mL 0.00-0.03 BASIC METABOLIC [id number] 19:43:00 Test Item Value Reference Range Interpretation Comments SODIUM (test code 141 mmol/L 136-145 N = NA) POTASSIUM (test 3.8 MMOL/L 3.6-5.2 N code = K) CHLORIDE (test 107 MMOL/L 98-110 N code = CL) CARBON DIOXIDE 30 mEq/L 24-32 N (test code = CO2) GLUCOSE (test code 106 mg/dL 70-110 N = GLU) BLOOD UREA 6 mg/dL 7-18 L NITROGEN (test code = BUN) GLOMERULAR >=60 max >60 The estimated FILTRATION RATE estimate glomerular (test code = GFR) filtration rate is computed usingpatient ra ce, age (>18), sex, and serum creatinin e. If anyof the neede d data elements a re missing the Laboratory ismael ot compute an estimation of t he glomerular filtration rate . CREATININE (test 1.09 mg/dL 0.60-1.30 N code = CREAT) CALCIUM (test code 8.7 mg/dL 8.6-10.3 N = CA) [id number] 19:43:00 Test Item Value Reference Range Interpretation Comments TROPONIN-I (test code = TROPI) 0.01 ng/mL 0.00-0.03 N BASIC METABOLIC [id number] 19:36:00 Test Item Value Reference Range Interpretation Comments SODIUM (test code = NA) mmol/L 136-145 POTASSIUM (test code = K) 3.8 MMOL/L 3.6-5.2 N CHLORIDE (test code = CL) MMOL/L 98-110 CARBON DIOXIDE (test code = CO2) mEq/L 24-32 GLUCOSE (test code = GLU) mg/dL 70-110 BLOOD UREA NITROGEN (test code = 6 mg/dL 7-18 L BUN) GLOMERULAR FILTRATION RATE (test >60 code = GFR) CREATININE (test code = CREAT) mg/dL 0.60-1.30 CALCIUM (test code = CA) mg/dL 8.6-10.3 [id number] 19:36:00 Test Item Value Reference Range Interpretation Comments TROPONIN-I (test code = TROPI) ng/mL 0.00-0.03 BASIC METABOLIC [id number] 19:32:00 Test Item Value Reference Range Interpretation Comments SODIUM (test code = NA) mmol/L 136-145 POTASSIUM (test code = K) 3.8 MMOL/L 3.6-5.2 N CHLORIDE (test code = CL) MMOL/L 98-110 CARBON DIOXIDE (test code = CO2) mEq/L 24-32 GLUCOSE (test code = GLU) mg/dL 70-110 BLOOD UREA NITROGEN (test code = mg/dL 7-18 BUN) GLOMERULAR FILTRATION RATE (test >60 code = GFR) CREATININE (test code = CREAT) mg/dL 0.60-1.30 CALCIUM (test code = CA) mg/dL 8.6-10.3 [id number] 19:32:00 Test Item Value Reference Range Interpretation Comments TROPONIN-I (test code = TROPI) ng/mL 0.00-0.03 CBC W/AUTO [id number] 19:23:00 Test Item Value Reference Range Interpretation Comments WHITE BLOOD CELL (test code = WBC) 7.36 K/mm3 5.0-12.0 N RED BLOOD CELL (test code = RBC) 4.80 M/mm3 4.70-6.10 N HEMOGLOBIN (test code = HGB) 14.4 G/DL 14.0-18.0 N HEMATOCRIT (test code = HCT) 42.5 % 37.0-49.0 N MEAN CELL VOLUME (test code = MCV) 89 fL 80-94 N MEAN CELL HGB (test code = MCH) 30.0 PGM 27-31 N MEAN CELL HGB CONCENTRATION (test 33.9 G/DL 33-37 N code = MCHC) RED CELL DISTRIBUTION WIDTH (test 13.7 % 11.6-16.2 N code = RDW) PLATELET COUNT (test code = PLT) 179 K/mm3 130-400 N MEAN PLATELET VOLUME (test code = 10.5 fl 7.4-10.4 H MPV) NEUTROPHIL % (test code = NT%) 72.5 % 43-65 H IMMATURE GRANULOCYTE % (test code 0.4 % 0.0-2.0 N = IG%) LYMPHOCYTE % (test code = LY%) 14.5 % 20.5-45.5 L MONOCYTE % (test code = MO%) 11.3 % 5.5-11.7 N EOSINOPHIL % (test code = EO%) 1.0 % 0.9-2.9 N BASOPHIL % (test code = BA%) 0.3 % 0.2-1.0 N NUCLEATED RBC % (test code = 0.0 % 0-1.0 N NRBC%) NEUTROPHIL # (test code = NT#) 5.34 K/mm3 2.2-4.8 H LYMPHOCYTE # (test code = LY#) 1.07 K/mm3 1.3-2.9 L MONOCYTE # (test code = MO#) 0.83 K/mm3 0.3-0.8 H EOSINOPHIL # (test code = EO#) 0.07 K/MM3 0.0-0.2 N BASOPHIL # (test code = BA#) 0.02 K/mm3 0.0-0.1 N - XR CHEST 1 [id number] 18:59:00Patient Name: KATHRYN ENCARNACION Unit No: [id number] EXAMS: CPT: [id number] XR CHEST 1 V 05669 Clinical History: Chest Pain. Exam: - XR CHEST 1 V Technique and Comparison: Portable AP upright chest radiograph performed 06/21/2019 without prior comparison. Findings: No evidence of focal airspace consolidation, pleural effusion, or pneumothorax. The cardiomediastinal silhouette is within normal limits. The visualized osseous structures are unremarkable. Impression: No significant radiographic abnormality identified of the chest. at 1859 Reported and signed by: Jie Hoover MD CC: Ubaldo Hamilton MD Technologist: Johanny Rust Fluoro Time: DAP (Gy m2): Air Kerma (mGy): Trscr Dt/Tm: 06/21/2019 (185) by:[email or web address] Orig Print D/T: S: 06/21/2019 (190) BATCH NO: N/A Name: KATHRYN ENCARNACION [facility] [place] Phys: [id number] - VuUbaldo [address] [facility] : 1975 Age: 44 Sex: M [place] Loc: T.ERS Exam Date: 06/21/2019 Status: REG ER PH: FAX: PAGE 1 Signed Report
[2021-10-10] MEDS ORDERED: HYDROCODONE/APAP 5/325 MG TAB ONE (17:50)
[2021-10-10] MEDS ORDERED: LIDOCAINE 1% MPF 5 ML VIAL ONE (17:50)
--- NOTE | 2021-10-10 18:37 | RAD REPORT ---
EXAM DESCRIPTION: RAD - Forearm Left - 10/10/2021 6:21 pm CLINICAL HISTORY: Left forearm pain status post injury FINDINGS: No fracture is seen
--- NOTE | 2021-10-10 19:24 | EDPHYS ---
Physician Documentation [facility] Name: Jason Lynn Age: 46 yrs Sex: Male : 1975 Arrival Date: 10/10/2021 Time: 17:16 Bed 11 Private MD: ED Physician Fallon Kennedy HPI: 10/10 19:19 This 46 yrs old Male presents to ER via Ambulatory with complaints of Crush jmm Injury To Arm. 19:19 The patient or guardian complains of injury, pain. Onset: The symptoms/episode jmm began/occurred acutely, just prior to arrival. Associated signs and symptoms: The patient has no apparent associated signs or symptoms. This is a 46 year old male with no chronic medical conditions that presents to the ED with complaints of left forearm pain beginning at 10 am after the patient his forearm was crushed. Denies other injury. . Historical: - Allergies: 17:23 No Known Allergies; ab2 - PMHx: 17:23 None; ab2 - PSHx: 17:23 None; ab2 - Immunization history:: Adult Immunizations up to date. - Social history:: Smoking status: Patient reports the use of cigarette tobacco products, smokes one-half pack cigarettes per day. ROS: 19:19 Constitutional: Negative for fever, chills, and weight loss, Cardiovascular: Negative jmm for chest pain, palpitations, and edema, Respiratory: Negative for shortness of breath, cough, wheezing, and pleuritic chest pain. 19:19 All other systems are negative. Exam: 19:19 Constitutional: This is a well developed, well nourished patient who is awake, alert, jmm and in no acute distress. Head/Face: atraumatic. Eyes: EOMI, no conjunctival erythema appreciated ENT: Moist Mucus Membranes Neck: Trachea midline, Supple Chest/axilla: Normal chest wall appearance and motion. Cardiovascular: Regular rate and rhythm. No edema appreciated Respiratory: Normal respirations, no respiratory distress appreciated Abdomen/GI: Non distended, soft Back: Normal ROM Skin: General appearance color normal 19:19 Musculoskeletal/extremity: left forearm diffusely ttp, full radial pulse, no deformities appreciated, compartments are soft, NVI. 19:19 Skin: Appearance: Color: normal in color. 19:19 Neuro: Orientation: is normal, Mentation: is normal, Memory: is normal. 19:19 Psych: Behavior/mood is pleasant, cooperative. Vital Signs: 17:22 BP 135 / 79; Pulse 62; Resp 18; Temp 97.9; Pulse Ox 98% on R/A; Weight 77.11 kg; Height ab2 6 ft. 1 in. (185.42 cm); Pain 9/10; 18:59 BP 141 / 82; Pulse 65; Resp 18; Pulse Ox 99% on R/A; ld1 17:22 Body Mass Index 22.43 (77.11 kg, 185.42 cm) ab2 MDM: 17:41 Patient medically screened. [facility] 19:21 Data reviewed: vital signs, nurses notes. Counseling: I had a detailed discussion with [facility] the patient and/or guardian regarding: the historical points, exam findings, and any diagnostic results supporting the discharge/admit diagnosis, the need for outpatient follow up, to return to the emergency department if symptoms worsen or persist or if there are any questions or concerns that arise at home. 10/10 17:45 Order name: Forearm Left XRAY; Complete Time: 19:01 [facility] Administered Medications: 17:48 Drug: HYDROcodone-acetaminophen 5 mg-325 mg 1 tabs Route: PO; ld1 Disposition Summary: 10/10/21 19:24 Discharge Ordered Location: Home [facility] Condition: Stable [facility] Diagnosis - Contusion of the Left Forearm [facility] Followup: [facility] - With: Wilmer Trinidad MD - When: 2 - 3 days - Reason: Recheck today's complaints, Continuance of care, Re-evaluation by your physician Discharge Instructions: - Discharge Summary Sheet [facility] - Contusion [facility] Forms: - Medication Reconciliation Form [facility] - Thank You Letter [facility] - Antibiotic Education [facility] - Prescription Opioid Use [facility] Prescriptions: - Diclofenac Sodium 75 mg Oral Tablet Sustained Release - take 1 tablet by ORAL route 2 times per day; 30 tablet; Refills: 0, Product [facility] Selection Permitted - orphenadrine citrate 100 mg Oral Tablet Sustained Release - take 1 tablet by ORAL route 2 times per day As needed; 20 tablet; Refills: 0, [facility] Product Selection Permitted Signatures: Dispatcher [employer] EDJake Beckett PA PA jmm Dibbern, Lauren, RN RN ld1 Bleininger, Carson ab2
--- NOTE | 2021-10-10 19:24 | ER ---
Nurse's Notes [facility] Name: Jason Lynn Age: 46 yrs Sex: Male : 1975 Arrival Date: 10/10/2021 Time: 17:16 Bed 11 Private MD: Diagnosis: Contusion of the Left Forearm Presentation: 10/10 17:22 Chief complaint: Patient states: "I was fixing a tractor and the hydraulic system gave ab2 out and smashed my forearm." Pt c/o left fore arm pain. Chief complaint:. Coronavirus screen: Vaccine status: Patient reports being unvaccinated. Client denies travel out of the [place] in the last 14 days. Ebola Screen: Patient negative for fever greater than or equal to 101.5 degrees Fahrenheit, and additional compatible Ebola Virus Disease symptoms Patient denies exposure to infectious person. Patient denies travel to an Ebola-affected area in the 21 days before illness onset. No symptoms or risks identified at this time. Initial Sepsis Screen: Does the patient meet any 2 criteria? No. Patient's initial sepsis screen is negative. Does the patient have a suspected source of infection? No. Patient's initial sepsis screen is negative. Risk Assessment: Do you want to hurt yourself or someone else? Patient reports no desire to harm self or others. Onset of symptoms is unknown. 17:22 Method Of Arrival: Ambulatory ab2 17:22 Acuity: AMY 4 ab2 Triage Assessment: 17:24 General: Appears in no apparent distress. uncomfortable, Behavior is calm, cooperative, ab2 appropriate for age. Pain: Complains of pain in left arm Pain currently is 9 out of 10 on a pain scale. Neuro: Level of Consciousness is awake, alert, obeys commands, Oriented to person, place, time, situation, Appropriate for age. Respiratory: Airway is patent Respiratory effort is even, unlabored, Respiratory pattern is regular, symmetrical. GI: No deficits noted. No signs and/or symptoms were reported involving the gastrointestinal system. Musculoskeletal: Reports pain in left arm. Historical: - Allergies: 17:23 No Known Allergies; ab2 - PMHx: 17:23 None; ab2 - PSHx: 17:23 None; ab2 - Immunization history:: Adult Immunizations up to date. - Social history:: Smoking status: Patient reports the use of cigarette tobacco products, smokes one-half pack cigarettes per day. Screenin:25 Abuse screen: Denies threats or abuse. Denies injuries from another. Nutritional ld1 screening: No deficits noted. Tuberculosis screening: No symptoms or risk factors identified. Fall Risk None identified. Assessment: 17:25 General: Appears in no apparent distress. comfortable, Behavior is calm, cooperative, ld1 appropriate for age. Pain: Complains of pain in left arm Pain does not radiate. Pain currently is 8 out of 10 on a pain scale. Neuro: Level of Consciousness is awake, alert, obeys commands, Oriented to person, place, time, situation. Cardiovascular: Capillary refill < 3 seconds Patient's skin is warm and dry. Respiratory: Airway is patent Respiratory effort is even, unlabored. GI: Abdomen is flat, non-distended. : No signs and/or symptoms were reported regarding the genitourinary system. EENT: No signs and/or symptoms were reported regarding the EENT system. Derm: No signs and/or symptoms reported regarding the dermatologic system. Musculoskeletal: Reports pain in left arm. 18:59 Reassessment: Patient appears in no apparent distress at this time. Patient is alert, ld1 oriented x 3, equal unlabored respirations, skin warm/dry/pink. Vital Signs: 17:22 BP 135 / 79; Pulse 62; Resp 18; Temp 97.9; Pulse Ox 98% on R/A; Weight 77.11 kg; Height ab2 6 ft. 1 in. (185.42 cm); Pain 9/10; 18:59 BP 141 / 82; Pulse 65; Resp 18; Pulse Ox 99% on R/A; ld1 17:22 Body Mass Index 22.43 (77.11 kg, 185.42 cm) ab2 ED Course: 17:16 Patient arrived in ED. as 17:23 Triage completed. ab2 17:24 Arm band placed on right wrist. ab2 17:25 Kylie Hernandez, WINNIE is Primary Nurse. ld1 17:25 Patient has correct armband on for positive identification. Placed in gown. Bed in low ld1 position. Call light in reach. Side rails up X2. Pulse ox on. NIBP on. Door closed. Noise minimized. Warm blanket given. 17:25 No provider procedures requiring assistance completed. ld1 17:33 Jake Gordon PA is PHCP. jmm 17:33 Fallon Kennedy MD is Attending Physician. jmm 18:23 Forearm Left XRAY In Process Unspecified. EDMS 19:23 Wilmer Trinidad MD is Referral Physician. [facility] 19:39 Patient did not have IV access during this emergency room visit. ab2 Administered Medications: 17:48 Drug: HYDROcodone-acetaminophen 5 mg-325 mg 1 tabs Route: PO; ld1 Outcome: 19:24 Discharge ordered by . m 19:39 Discharged to home ambulatory. ab2 19:39 Condition: stable 19:39 Discharge instructions given to patient, Instructed on discharge instructions, follow up and referral plans. medication usage, Demonstrated understanding of instructions, follow-up care, medications, Prescriptions given X 2. 19:39 Patient left the ED. ab2 Signatures: Dispatcher [employer] EDMS Jake Gordon PA PA jmm Martinez, Amelia as Dibbern, Lauren, WINNIE RN ld1 Carson Leger ab2
[2021-10-10 19:50] VITALS: BP 135/79; TEMP 97.9; O2SAT 98
== END 2021-10-10 19:39 | disposition home or self-care (01) ==
LOC: ER 17:15
DX: S50.12XA Contusion of left forearm, initial encounter (principal); W30.9XXA Contact with unspecified agricultural machinery, initial encounter; Y93.89 Activity, other specified; Y92.9 Unspecified place or not applicable; F17.210 Nicotine dependence, cigarettes, uncomplicated
CPT/HCPCS: 99284